=== PATIENT | female | born 1995 | race Two or more races ===

== ENCOUNTER 2024-04-03 18:53 | Emergency (ER) | payer MEDICAID ==
[~2024-04-03] VITALS: Ht 154.9 cm; Wt 52.2 kg
[2024-04-03] MEDS ORDERED: LIDOCAINE VISCOUS 2% UD 15 ML UDC ONE (19:43)
[2024-04-03] MEDS ORDERED: MAG HYDROX/AL HYDROX/SIMETH 30 ML UDC ONE (19:43)
[2024-04-03] MEDS ORDERED: ACETAMINOPHEN ES 500 MG TABLET ONE (19:44)
[2024-04-03] MEDS ORDERED: FAMOTIDINE (20 MG) 20 MG TABLET ONE (19:44)
[2024-04-03] MEDS: MAG HYDROX/AL HYDROX/SIMETH 30 ML UDC PO ONE (19:48)
[2024-04-03] MEDS: FAMOTIDINE (20 MG) 20 MG TABLET PO ONE (19:48)
[2024-04-03] MEDS: ACETAMINOPHEN ES 500 MG TABLET PO ONE (19:48)
[2024-04-03] MEDS: LIDOCAINE VISCOUS 2% UD 15 ML UDC MM ONE (19:48)
[2024-04-03 19:57] LABS: BASOPHILS # (AUTO) 0.1 K/uL (0.0-0.2); EOSINOPHILS # (AUTO) 0.2 K/uL (0.0-0.7); EOSINOPHILS % (AUTO) 2.5 % (0.0-6.0); HEMATOCRIT 38 % (33-45); HEMOGLOBIN 12.6 g/dL (11.5-14.8); LYMPHOCYTES % (AUTO) 28.4 % (20.0-44.0); MEAN CORPUSCULAR HEMOGLOBIN 30 PG (26.0-33.0); MEAN CORPUSCULAR HGB CONC 34 g/dl (31.0-36.0); MEAN CORPUSCULAR VOLUME 91 fL (82-100); MONOCYTES # (AUTO) 0.4 K/uL (0.1-1.30); NEUTROPHILS # (AUTO) 4.4 K/uL (1.8-8.9); NEUTROPHILS % (AUTO) 62.1 % (43.0-81.0); PLATELET COUNT (AUTO) 204 K/uL (150-450); RED BLOOD CELL COUNT(AUTO) 4.15 MIL/uL (4.0-5.2); RED CELL DISTRIBUTION WIDTH 12.6 % (11.5-15.0); WHITE BLOOD COUNT (AUTO) 7.1 K/uL (4.3-11.0)
[2024-04-03 20:01] LABS: CREATININE 0.7 mg/dL (0.6-1.3); POTASSIUM 3.8 mmol/L (3.5-5.1)
[2024-04-03 20:08] LABS: ALBUMIN 4.1 g/dL (3.4-5.0); BILIRUBIN,DIRECT 0.1 mg/dL (0.0-0.2); BILIRUBIN,TOTAL 0.3 mg/dL (0.2-1.0); TOTAL PROTEIN, SERUM 7.9 g/dL (6.4-8.2)
[2024-04-03 20:09] LABS: APPEARANCE,URINE CLEAR (CLEAR); BILIRUBIN,URINE NEGATIVE (NEGATIVE); BLOOD, URINE TRACE-INTA Ery/uL (NEGATIVE); COLOR,URINE YELLOW (YELLOW); KETONES,URINE NEGATIVE (NEGATIVE); LEUKOCYTE ESTERASE ,URINE NEGATIVE (NEGATIVE); NITRITE, URINE NEGATIVE (NEGATIVE); PROTEIN,URINE NEGATIVE (NEGATIVE); UGLUCOSE NEGATIVE (NEGATIVE); UROBILINOGEN,URINE 0.2 EU/dL (0.2)
[2024-04-03 20:10] LABS: PREGNANCY TEST URINE QUAL NEGATIVE (NEGATIVE)
[2024-04-03 20:26] LABS: ADD URINE CULTURE NO; BACTERIA,URINE None seen /HPF (None Seen); RBC,URINE 0-2 /HPF (0-2); SQUAMOUS EPITHELIAL CELL,UR None Seen /HPF (None Seen); WBC,URINE NONE SEEN /HPF (0-3)
[2024-04-03 22:25] VITALS: BP 105/64; TEMP 98.2; O2SAT 99
[2024-04-03] MEDS ORDERED: MAG-55 PO (22:29)
== END 2024-04-03 22:27 | disposition home or self-care (01) ==
LOC: ER 18:55
DX: R10.13 Epigastric pain (principal); R11.0 Nausea; Z88.0 Allergy status to penicillin
CPT/HCPCS: 36415; 80048-TC; 80076-TC; 81001; 83690-TC; 84703-TC; 85025-TC